=== PATIENT | female | born 1995 | race Two or more races ===

== ENCOUNTER 2017-05-02 21:43 | Emergency (ER) | payer OTHER ==
[~2017-05-02 21:43] MED LIST: AMITRIPTYLINE H25 MG PO; COGENTIN1 M1 PO; DEPAKOTE PO; FOLIC ACID PO; HALDOL PO; KEPPRA1000 MG PO; KEPPRA500 M2 PO; KLONOPIN0.5 MG PO; LEVAQUIN PO; MELATONIN; PROZAC10 M1 PO; SLEEPING PILL PO; TOPROL XL PO; VIMPAT150 MG PO; VIMPAT50 MG PO; ZOLOFT50 MG PO
[2017-05-03] MEDS ORDERED: PATIENT'S PHARMACY (09:35)
[2017-05-03] MEDS ORDERED: VIMPAT100 MG PO (09:36)
[2017-05-03] MEDS ORDERED: CARBAMAZEPINE100 M1 PO (19:51)
[2017-05-07] MEDS ORDERED: DEPAKOTE ER PO (13:19)
== END 2017-05-02 21:50 | disposition left against medical advice (07) ==
LOC: CED 21:43
DX: Z53.21 Procedure and treatment not carried out due to patient leaving prior to being seen by health care provider (principal)

== ENCOUNTER 2017-05-03 03:59 | Inpatient (IN) | payer OTHER ==
[~2017-05-03] VITALS: Ht 165.1 cm; Wt 46.0 kg
--- NOTE | ~2017-05-03 | CO ---
Unit #: [id number] #: [id number] Patient: ANY SAHNI [id number] [address] [place], [place] [address] [id number] I MR#: [id number] NAME: ANY SAHNI ROOM: 577 Age: 22 Sex: F Admission Date: 05/03/2017 : 1995 Attending Physician: Marcell Presley M.D. Consultation Date: 05/03/2017 CONSULTATION REPORT PRIMARY CARE PHYSICIAN I believe she goes to [facility]. PATIENT IDENTIFICATION This is a 22-year-old right-handed female, who is evaluated in room ER bed 6. SOURCE OF INFORMATION Some from the patient, her mother along her boyfriend, and previous records. I have seen this patient twice before. PROBLEM LIST 1. History of seizure. 2. 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 3. History of psychosis. 4. History of depression. 5. History of . HISTORY OF PRESENT ILLNESS This is a 22-year-old right-handed female, who actually has been evaluated here in the past. She used to go to [facility]. She has history of seizure since age 12. She used to see Dr. Jorge Zambrano. She has had positive EEG. She was on different medication. The last time she was here, we will put her on Keppra and Vimpat. It looks that she continues to be on Vimpat 200 mg b.i.d. and Keppra was discontinued and the is telling me that she is taking carbamazepine 200 mg two in the morning and three at night. She is seeing a Dr. Knutson, but I do not have any further records. She came with multiple seizures at nighttime and I believe she came yesterday, but left and came back again. One of the biggest concern right now is that she has abnormal LFTs and that is being looked into. Her vital signs are stable. She is a bit drowsy. She did tell me that she is taking her medication. She did tell me she is following with a doctor. She denies any alcohol or drug use or nausea and vomiting or missing any doses. Her seizure frequency otherwise, she says she is in good control, but I do not have any of the records. Previously, she has tried Depakote and other medication. She has seen DrTony Unit #: [id number] #: [id number] Patient: ANY SAHNI and they want to do ERCP because her liver function tests show significant elevation in LFTs and she may have a gallstone. PAST MEDICAL HISTORY As discussed above. PAST SURGICAL HISTORY . ALLERGIES None. HOME MEDICATIONS It looks like Vimpat 200 mg b.i.d. and carbamazepine 400 mg in the morning and 600 mg at night. FAMILY HISTORY Noncontributory. SOCIAL HISTORY She lives with boyfriend. She at least has a daughter. She denies tobacco, alcohol, or drug use. REVIEW OF SYSTEMS CONSTITUTIONAL: Very difficult to obtain because of her lethargy, but she denies any headaches, fever, nausea, vomiting, abdominal pain, diarrhea, or constipation. EXTREMITIES: No extremity problems. BACK: No back problems. PSYCHIATRIC: History of depression. NEUROLOGIC: Seizure disorder. No other hematologic, dermatologic, or endocrine issues known to me. PHYSICAL EXAMINATION VITAL SIGNS: Temperature 97.8, pulse 81, respirations 18, blood pressure 118/81, O2 saturations were 99%, weight of 53.7 kg. NEUROLOGIC: The patient is lethargic. She know she is in the hospital. She recognized herself and her family members. She cannot tell me the details about her orientation. Cranial examination demonstrates full pearce of vision to confrontation. Eye movements are conjugate. I did not see any ptosis. I did not see any nystagmus. Extraocular movements are intact. Sensation on the face and scalpel normal. Strength of muscles of facial expression normal. Hearing seemed to be intact bilaterally. Tongue was midline. I could not visualize oropharynx or uvula. Head turning was spontaneous. Motor examination demonstrated normal bulk, tone. Strength was 5-/5 all over. Sensory examination intact for soft touch and pain sensation. No extinction was seen. Romberg was not evaluated. Gait examination was deferred. I could not negative any reflexes. Toes are equivocal. Unit #: [id number] #: [id number] Patient: ANY SAHNI Coordination was otherwise okay for [id number]-vz-bjon-to-finger. DIAGNOSTIC STUDIES LABORATORY RESULTS: Reviewed. Her urinalysis shows possible urinary tract infection. LFTs were elevated as discussed. IMPRESSION This is a very interesting 22-year-old female with a breakthrough seizure. Her LFTs are elevated, so she is going for that evaluation. I am going to resume her Vimpat and Tegretol until we know the results. Seizure precautions apply and if there are further events, I may have to put her on other IV medications like Keppra again until she stabilizes and we will go from there. I will keep you informed. Discussed with Dr. Zafar, who was at bedside and discussed with the ER physician, discussed with the patient's boyfriend and further treatment will be based on how she does and then follow up with established neurologist and epileptologist. Dictated by... Jose Luis Kelly/bull TD: 05/04/2017 12:37 JOB #: [id number] CONSULTATION REPORT Page 1 of 1 X Edmar Noyola MD X CONSULTATION REPORT
--- NOTE | ~2017-05-03 | HP ---
Unit #: [id number] #: [id number] Patient: ANY SAHNI [id number] [address] [address] [id number] E MR#: [id number] NAME: ANY SAHNI ROOM: Age: 22 Sex: F Admission Date: 05/03/2017 : 1995 Attending Physician: Carlos Fields D.O. Primary Care Physician: No Primary Care Physician HISTORY AND PHYSICAL CHIEF COMPLAINT Seizures. HISTORY OF PRESENT ILLNESS The patient is a 22-year-old female with history of seizures, brought to the emergency room complaining of the recurrent seizures. The patient is postictal and is unable to provide history, and the history is obtained by speaking to the patient's mother and patient's boyfriend at the bedside. The patient has been on the medications with Vimpat, Keppra, and carbamazepine and was having recurrent seizures, especially at night. The patient had multiple seizures in the emergency room. The patient was found to have pneumonia on the CT of the abdomen and pelvis with elevated LFTs. Lactate is 2.4, and patient is being admitted for the above reasons. The patient denies abdominal pain. Denies any nausea or vomiting. The patient follows with neurology at [facility] and has been compliant with her medications. PAST MEDICAL HISTORY History of seizures as well as pseudoseizures. PAST SURGICAL HISTORY . ALLERGIES None. HOME MEDICATIONS 1. Vimpat. 2. Keppra. FAMILY HISTORY Negative for seizures. SOCIAL HISTORY The patient lives with her mother and her daughter. Does not smoke or use alcohol. REVIEW OF SYSTEMS Unable to obtain as the patient is more lethargic. PHYSICAL EXAMINATION GENERAL: Patient is lying on the bed, not in acute distress. VITALS: Temperature 97.8, pulse 81, respirations 18, blood pressure 118/81. Unit #: [id number] #: [id number] Patient: ANY SAHNI HEENT: Head: Atraumatic, normocephalic. Pupils equal, round, and reactive to light and accommodation. Extraocular movements are intact. Dry mucous membranes. NECK: Supple. LUNGS: Decreased air entry at the bases. Positive for rhonchi. HEART: Regular rate and rhythm. ABDOMEN: Soft. Positive bowel sounds. EXTREMITIES: No cyanosis. No clubbing. NEUROLOGIC: No gross focal motor deficit. PSYCHIATRIC: Mood and affect are appropriate. DIAGNOSTIC STUDIES LABORATORY: UA shows trace leukocyte esterase, 1+ protein, 5-10 urine WBCs. WBC 6.3, hemoglobin 12.1, hematocrit 36.4, platelets 218,000. Urine drug screen is negative. Lactic acid is 2.3. Lipase 29. Sodium 141, potassium 3.6, chloride 106, bicarbonate 25, glucose 118, BUN 18, creatinine 0.5. AST 1082, ALT 444, alkaline phosphatase 187, total bilirubin 1.1, direct bilirubin 0.4. Acetaminophen less than 10. Salicylate 9. Repeat lactic acid is 0.7. IMAGING: Chest x-ray shows no acute abnormality. There is a poor inspiratory effort with crowding of the central bronchovascular structures. CT of the abdomen and pelvis shows mild ground glass infiltrate in the visualized left lower lobe most suggestive of pneumonia. Cholelithiasis with scant pericholecystic fluid. No gallbladder wall thickening or surrounding inflammatory stranding. CT of the head shows no acute intracranial abnormality, mild mucosal thickening in the partially imaged left maxillary sinus. ASSESSMENT 1. Recurrent seizures. 2. Sepsis. 3. Pneumonia. 4. Elevated LFTs. PLAN Plan to admit the patient to the inpatient with telemetry. Continue with the sepsis protocol. Continue with IV antibiotics, Zosyn, pharmacy to dose. Follow with neurology for the recurrent seizures and GI for the elevated LFTs to rule out common bile duct blockage with the elevated LFTs. Further recommendations to follow as more lab results are available. Dictated by Jose Luis De Los Santos/ruthie TD: 05/03/2017 14:10 JOB #: [id number] Unit #: [id number] #: [id number] Patient: ANY SAHNI HISTORY AND PHYSICAL Page 1 of 1 X FANTASMA DAIGLE MD X HISTORY AND PHYSICAL
--- NOTE | ~2017-05-03 | CR84 ---
[facility] A Service of [facility] RADIOLOGY TEXT RESULTS PATIENT: ANY SAHNI LOCATION: [facility] : [birth year] UNIT #: [id number] AGE: [address]: Marcell Presley MD SEX: F ORDER DR: [id number] [facility] [address] [place], [place] [address] [id number] I MR#: [id number] Acc #: [id number] NAME: ANY SAHNI : 1995 SEX: F STUDY DATE/TIME: 05/03/2017 12:48 UNIT: [facility] ROOM: [facility] STUDY DESCRIPTION: CR ERCP Biliary and Pancr SI Attending Physician: Guerline Zafar M.D. Ordering Physician: Micky Chen M.D. Primary Care Physician: Primary Care Physician No MEDICAL IMAGING REPORT This report is preliminary unless electronic signature is present EXAM ERCP 05/03/2017 HISTORY Biliary colic and abnormally elevated liver enzymes on 05/03/2017, common bile duct obstruction and gallstones. Nausea and epigastric abdominal pain since 05/02/2017. CT scan of the abdomen and pelvis performed 05/03/2017 demonstrated cholelithiasis and pericholecystic fluid. FINDINGS ERCP was performed by Dr. Chen. 8 spot film radiographs of the upper abdomen were obtained and 2.26 minutes of fluoroscopy time was utilized. Contrast injection of the pancreatic duct was normal. Injection of the biliary tree was also normal. Sphincterotomy was performed by Dr. Chen. Balloon catheter was pulled retrograde through the common duct but no stones were obtained. A stent was placed in the common bile duct at the end of the examination. Dictated by... Bhavik Crabtree M.D. THIS IS AN ELECTRONICALLY VERIFIED REPORT Bhavik Crabtree M.D. at 05/08/2017 12:01 PM JANELL/isidro TD: 05/04/2017 01:58 JOB #: [id number] MEDICAL IMAGING REPORT Page 1 of 1 COPY
--- NOTE | ~2017-05-03 | CT71 ---
[facility] A Service of [facility] RADIOLOGY TEXT RESULTS PATIENT: ANY SAHNI LOCATION: [facility] : [birth year] UNIT #: [id number] AGE: [address]: Carlos Fields DO SEX: F ORDER DR: [id number] [place] [id number] [facility]. [place], [place] [address] [id number] E MR#: [id number] Acc #: [id number] NAME: ANY SAHNI : 1995 SEX: F STUDY DATE/TIME: 05/03/2017 7:56 UNIT: [facility] ROOM: STUDY DESCRIPTION: CT Head Wo Contrast Attending Physician: Carlos Fields D.O. Ordering Physician: Tea Membreno M.D. Primary Care Physician: No Primary Care Physician MEDICAL IMAGING REPORT This report is preliminary unless electronic signature is present EXAM CT head without contrast, 05/03/2017. HISTORY 22-year-old female with [address] head, 01/01/2014. TECHNIQUE Routine unenhanced axial images performed through the brain. This CT exam was performed with one or more of the following radiation dose reduction techniques: automatic exposure control, adjustment of mA and/or kV according to patient size, and iterative reconstruction. FINDINGS No hemorrhage, acute infarction, mass lesion, or abnormal extraaxial fluid collection. No midline shift or focal mass effect. Ventricular system is normal in size and configuration. No acute bony abnormality. Mild mucosal thickening of visualized left maxillary sinus. Visualized mastoid air cells are clear. IMPRESSION 1. No acute intracranial abnormality. 2. Mild mucosal thickening in the partially imaged left maxillary sinus. Dictated by... Gama Lentz M.D. THIS IS AN ELECTRONICALLY VERIFIED REPORT Gama Lentz M.D. at 05/03/2017 4:37 PM JANETH/tomas [facility] A Service of [facility] RADIOLOGY TEXT RESULTS PATIENT: ANY SAHNI LOCATION: [facility] : 93 UNIT #: [id number] AGE: [address]: Carlos Fields DO SEX: F ORDER DR: TD: 05/03/2017 12:02 JOB #: [id number] MEDICAL IMAGING REPORT Page 1 of 1 COPY
--- NOTE | ~2017-05-03 | CT2 ---
[facility] A Service of [facility] RADIOLOGY TEXT RESULTS PATIENT: ANY SAHNI LOCATION: [facility] 577-01 : [birth year] UNIT #: [id number] AGE: [address]: Marcell Presley MD SEX: F ORDER DR: [id number] [place] [id number] [facility]. [place], [place] [address] [id number] E MR#: [id number] Acc #: [id number] NAME: ANY SAHNI : 1995 SEX: F STUDY DATE/TIME: 05/03/2017 7:59 UNIT: [facility] ROOM: STUDY DESCRIPTION: CT Abd and Pelv W Cont Attending Physician: Carlos Fields D.O. Ordering Physician: Tea Membreno M.D. Primary Care Physician: Primary Care Physician No MEDICAL IMAGING REPORT This report is preliminary unless electronic signature is present EXAM CT abdomen and pelvis with contrast INDICATIONS Nausea and epigastric pain for [address] of the abdomen and pelvis was performed following the administration of oral and IV contrast only. Coronal and sagittal reformatted images were obtained. This CT exam was performed with one or more of the following radiation dose reduction techniques: Automatic exposure control, adjustment of mA and/or kV according to patient size, and iterative reconstruction. No comparisons. FINDINGS There is patchy ground-glass infiltrate within the visualized portion of the left lower lobe suspicious for pneumonia. Cholelithiasis. There may be some scant pericholecystic fluid. No wall thickening or inflammatory stranding around the gallbladder. The spleen is unremarkable. The kidneys are unremarkable. The adrenal glands are unremarkable. The pancreas is unremarkable. PELVIS: Colon is unremarkable. The appendix is normal. IUD. The bone windows are unremarkable. IMPRESSION 1. Mild ground-glass infiltrate in the visualized left lower lobe most suggestive of pneumonia. 2. Cholelithiasis with scant pericholecystic fluid. No gallbladder wall thickening or surrounding inflammatory stranding. [facility] A Service of [facility] RADIOLOGY TEXT RESULTS PATIENT: ANY SAHNI LOCATION: [facility] 577-01 : [birth year] UNIT #: [id number] AGE: [address]: Marcell Presley MD SEX: F ORDER DR: Dictated by... uJan Pablo Esquivel M.D. THIS IS AN ELECTRONICALLY VERIFIED REPORT Juan Pablo Esquivel M.D. at 05/08/2017 11:20 AM JARED/dylan TD: 05/03/2017 11:50 JOB #: [id number] MEDICAL IMAGING REPORT Page 1 of 1 COPY
--- NOTE | ~2017-05-03 | CR72 ---
[facility] A Service of [facility] RADIOLOGY TEXT RESULTS PATIENT: ANY SAHNI LOCATION: [facility] : [birth year] UNIT #: [id number] AGE: [address]: Marcell Presley MD SEX: F ORDER DR: [id number] [facility] [address] [facility]. [place], [place] [address] [id number] E MR#: [id number] Acc #: [id number] NAME: ANY SAHNI : 1995 SEX: F STUDY DATE/TIME: 05/03/2017 6:51 UNIT: [facility] ROOM: STUDY DESCRIPTION: CR Chest Single View Portable Attending Physician: Carlos Fields D.O. Ordering Physician: Carlos Fields D.O. Primary Care Physician: No Primary Care Physician MEDICAL IMAGING REPORT This report is preliminary unless electronic signature is present EXAM AP view of the chest. COMPARISON None/ INDICATIONS 22-year-old female with recent seizure. Cough, dyspnea and chest pain today. FINDINGS Cardiomediastinal silhouette is within normal limits. There is poor inspiratory effort with crowding of central bronchovascular structures. No evidence of pneumothorax, pleural effusion or pneumonia. IMPRESSION No acute abnormality. There is poor inspiratory effort with crowding of central bronchovascular structures. Dictated by... Harsh Howard M.D. THIS IS AN ELECTRONICALLY VERIFIED REPORT Harsh Howard M.D. at 05/04/2017 8:56 PM BLM/gz TD: 05/03/2017 09:02 JOB #: [id number] MEDICAL IMAGING REPORT Page 1 of 1 COPY
--- NOTE | ~2017-05-03 | CO ---
Unit #: [id number] #: [id number] Patient: ANY SAHNI [id number] [address] [address] [id number] I MR#: [id number] NAME: ANY SAHNI ROOM: 577 Age: 22 Sex: F Admission Date: 05/03/2017 : 1995 Attending Physician: Marcell Presley M.D. Consultation Date: 05/03/2017 CONSULTATION REPORT HISTORY OF PRESENT ILLNESS Ms. Jorge Luis Amaya is a 22-year-old female, who is and presented to the hospital with right upper quadrant pain, associated nausea, vomiting, and the pain radiating into the right subscapular area. CT scan revealed cholelithiasis. Liver chemistries were elevated, so she was seen by Dr. Chen and today underwent ERCP and stent placement. Post ERCP, the patient had a reported seizure and is admitted to the ICU for observation. Currently, she is awake, alert, and oriented and does not appear to be postictal. We discussed laparoscopic cholecystectomy. PAST MEDICAL HISTORY 2, para 2, x2. Seizure disorder. ALLERGIES Denies allergies to medication. MEDICATIONS Include Vimpat. FAMILY HISTORY She is unaware of any chronic or inheritable diseases. SOCIAL HISTORY She has 2 children. Denies use of tobacco, alcohol or recreational drugs. She does not work outside of the home. REVIEW OF SYSTEMS Otherwise unremarkable. PHYSICAL EXAMINATION VITAL SIGNS: Temperature is 97.8, pulse 81, respirations 18, blood pressure 118/81, O2 sats 99% on room air. HEENT: No scleral icterus. CARDIAC: Regular rhythm. LUNGS: Clear. ABDOMEN: Soft. She guards in the right upper quadrant, but there is no palpable mass. No involuntary guarding. No rebound. EXTREMITIES: No edema. NEUROLOGIC: Grossly intact. Neurologically, she is not postictal. SKIN: No skin rashes or lesions. DIAGNOSTIC STUDIES LABORATORY RESULTS: Repeat post ERCP labs are pending. Unit #: [id number] #: [id number] Patient: ANY SAHNI ASSESSMENT AND PLAN A 22-year-old female with cholelithiasis, who is status post endoscopic retrograde cholangiopancreatography and stent placement. We discussed laparoscopic cholecystectomy including risks, benefits, complications, and the possibility of conversion to an open procedure. At this time, we will reassess the patient in the morning and discuss with Neurology if it is safe to proceed with general anesthesia. Dictated by... Jose Luis Mark/bull TD: 05/03/2017 23:29 JOB #: [id number] CONSULTATION REPORT Page 1 of 1 X Braeden Lorenzana MD X CONSULTATION REPORT
--- NOTE | ~2017-05-03 | A ---
[facility] Nutrition Therapy DATE: 05/04/17 Patient: ANY CALABRESE MAZIN Physician: JORDAN Address: [address] [place] [address] REZA Room/Bed: [address], Zip: [place] [address] Admit Date: 05/03/17 Date of : [birth year] Height: 5 5 Weight: 105 48 NUTRITIONAL ASSESSMENT: REASON: PT SEEN FOR LOW BMI + 1 NUTRITION RISK PT RE: /, ALSO NPO IN ICU ASSESSMENT PT IS 22 Y.O. FEMALE ADMITTED FOR SEIZURE, SEPSIS, PNA PMH: PSEUDOSEIZURES, SEIZURE DISORDER, HTN Anthropometrics: 5'5", WT: 103# (PER PT) (47 KG), BMI: 17.1 Labs: BUN: 8, CREAT: 0.4, AST: 282, ALT: 328, AMYLASE: 539, LIPASE: 907 Meds: KCL, NACL, ZOSYN I/O & Bowel function: 1710/1357 Skin Integrity: NO KNOWN SKIN ISSUES Estimated Nutrition Needs: INCREASED NEEDS 2' CURRENT CONDITION, WEIGHT LOSS NOTED, PT Assessment: CHART REVIEWED AND EVENTS NOTED. PT SEEN FOR LOW BMI + 1 NUTRITION RISK PT RE: / + NPO IN ICU ASSESSMENT. PT AWAKE BUT SLIGHTY CONFUSED AT TIME OF VISIT REPORTING "NORMAL" GOOD PO INTAKE AND APPETITE PRIOR TO ADMIT, NOTES BABY 2 MONTHS OLD. PT REPORTS LOSING ~10# PAST MONTH 2' . (PT ADDS UBW IS ~115#). PER RN AND CHART, PLANS IN PLACE FOR LAP CHOLECYSTECTOMY. THIS RD ENCOURAGED SMALL FREQUENT MEALS (ADEQUATE KCAL, FLUID AND PROTEIN INTAKE) ONCE DIET ADVANCES FOR INCREASED NEEDS 2' , PT REPORTED. PT REPORTED NO DIET QUESTIONS AT THIS TIME. RD TO FOLLOW. SEE RECOMMENDATIONS BELOW. Dx: INCREASED NUTRIENT NEEDS R/T CURRENT CLINICAL CONDITION, AEB PT REPORT ABOVE, 10# WEIGHT LOSS IN PAST MONTH 2' NEEDS. 2. INADEQUATE ORAL INTAKE R/T CURRENT DIAGNOSIS, CURRENT CLINICAL CONDITION AEB NPO STATUS. Intervention: 1. NPO Monitoring, Evaluation and Goals: 1. ORAL INTAKE; ADVANCE DIET AND CONSUME/TOLERATE >50% OF MEALS 2. WEIGHTS; PROMOTE GRADUAL WEIGHT GAIN TOWARDS HEALTHY BMI; PREVENT WEIGHT LOSS [facility] Nutrition Therapy DATE: 05/04/17 Patient: ANY RETANA Physician: JORDAN Address: [address] Room/Bed: [address], Zip: [place] [address] Admit Date: 05/03/17 Date of : [birth year] Height: 5 5 Weight: 105 48 3. LABS; WNL: AMYLASE & LIPASE MONITOR: PER PROTOCOL, CRITERIA TO DETERMINE IF GOALS ABOVE ARE MET Recommendations: 1. ONCE MEDICALLY FEASIBLE, ADVANCE DIET TOLERATED TO HEALTHY HEART 2. PLEASE ORDER ENSURE SHAKES BID, IF PO INTAKE <50%, FOR ADDITIONAL PROTEIN, KCAL AND FLUID 3. ENCOURAGE SLOW GRADUAL PO INTAKE. RD WILL F/U PER PROTOCOL PT IS MILD/MODERATELY COMPROMISED Respectfully, BRAYDEN HAMILTON MS, RD, LD [facility] Nutrition[facility] cc: client file
--- NOTE | ~2017-05-03 | OR ---
Unit #: [id number] #: [id number] Patient: ANY SAHNI [id number] [address] [address] [id number] MR#: [id number] NAME: ANY SAHNI ROOM: 577 Date of Procedure: 05/04/2017 Admission Date: 05/03/2017 Surgeon: Braeden Lorenzana M.D. : 1995 Attending Physician: Marcell Presley M.D. OPERATIVE REPORT PREOPERATIVE DIAGNOSES Chronic cholecystitis, cholelithiasis. POSTOPERATIVE DIAGNOSES Chronic cholecystitis, cholelithiasis PROCEDURE PERFORMED Laparoscopic cholecystectomy. ANESTHESIA General endotracheal anesthesia. ESTIMATED BLOOD LOSS Less than 10 mL. INDICATIONS FOR PROCEDURE Ms. Amaya is a 22-year-old female, who presented with nausea, vomiting, and elevated liver chemistries. She was admitted to the medical service and underwent ERCP with stent placement. We were consulted for cholecystectomy due to cholelithiasis. DESCRIPTION OF PROCEDURE The patient was transported from her hospital room to the operating room, and after induction of general endotracheal anesthesia, she was prepped and draped in usual sterile fashion. A 5-mm infraumbilical incision was made. Veress needle was placed. Pneumoperitoneum was created. Then, a 5-mm trocar was placed. Laparoscope was introduced into the peritoneal cavity. Under direct vision, the epigastric and lateral ports were placed. Gallbladder was grasped and elevated. Adhesions were stripped away and the infundibulum was identified and retracted laterally. Thor of [place] was dissected out until we could clearly identify the cystic duct, gallbladder, and cystic duct-common duct junction. The posteriorly placed cystic artery was also dissected free. I then swept the cystic duct towards the gallbladder and there did not appear to be any stones in the cystic duct. A single clip was placed in the cystic duct centered to gallbladder and then three clips were placed distally and the cystic duct was sharply divided. Posteriorly, the cystic artery was doubly clipped proximally and distally and divided. I then dissected the gallbladder out of the liver bed using cautery dissection. Once it was freed up from its hepatic attachments, it was brought out through the epigastric port. There was no spillage of bile or stones. There was excellent hemostasis. The epigastric fascial defect was closed using a Unit #: [id number] #: [id number] Patient: ANY SAHNI neoClose device and the closure was airtight. I then reduced the pneumoperitoneum, as I removed the laparoscope and trocars. 0.5% Marcaine with epinephrine was infiltrated into each trocar site. Skin was closed with 4-0 Monocryl subcuticular closure and Dermabond skin adhesive. Sponges and needle counts were correct x3. The patient was transported to recovery in stable condition. Findings and postoperative instructions and expectations were discussed with the family with the use of an gas station attendant. Dictated by... Jose Luis Mark/bull TD: 05/04/2017 14:52 JOB #: [id number] OPERATIVE REPORT Page 1 of 1 X Braeden Lorenzana MD X PROCEDURE OPERATIVE NOTE
[2017-05-03 04:57] LABS: URINE SOURCE CLEAN CATCH
[2017-05-03 05:10] LABS: URINE APPEARANCE TURBID; URINE BILIRUBIN NEG (NEG); URINE BLOOD NEG (NEG); URINE COLOR DK YELLOW; URINE GLUCOSE NEG (NEG); URINE KETONE TRACE (NEG); URINE LEUKOCYTE ESTERASE TRACE (NEG); URINE NITRATE NEG (NEG); URINE PROTEIN 1+ (NEG); URINE SPECIFIC GRAVITY 1.029 (1.003-1.035)
[2017-05-03 05:12] LABS: CULTURE INDICATED? YES; URBCS1 AUWI 0-2 /[HPF] (0-2); URINE BACTERIA AUWI NEG (NEGATIVE); URINE SQUAMOUS EPITHELIAL CELL FEW /[HPF]
[2017-05-03 05:25] LABS: BASOPHIL% 0.3 % (0-2.5); HEMATOCRIT 36.4 % (35.0-45.0); HEMOGLOBIN 12.1 gm/dL (12.0-16.0); LYMPHOCYTE# 0.6 X10e3 (1.0-3.5); LYMPHOCYTE% 10.4 % (17.0-45.0); MEAN CELL VOLUME 87.6 FL (83-96); MEAN CORPUSCULAR HGB CONC 33.1 g/dL (30-36); MEAN PLATELET VOLUME 9.8 FL (6.5-11.5); MONOCYTE# 0.2 X10e3 (0-1.0); NEUTROPHIL# 5.3 X10e3 (1.5-7.1); NEUTROPHIL% 85.3 % (40-75); PLATELET COUNT 218 X10e3 (140-420); RED BLOOD COUNT 4.16 X10e (3.90-5.30); RED CELL DISTRIBUTION WIDTH 14.4 % (11.0-15.5); WHITE BLOOD COUNT 6.2 X10e3 (4.0-10.5)
[2017-05-03 05:30] LABS: URINE MUCUS O
[2017-05-03 05:36] LABS: DIFF IND NO
[2017-05-03 05:46] LABS: AMPHETAMINE NEG (NEG); BARBITURATES NEG (NEG); BENZODIAZEPINES NEG (NEG); COCAINE NEG (NEG); MARIJUANA NEG (NEG); OPIATES NEG (NEG); TRICYCLIC ANTIDEPRESSANTS NEG (NEG); U METHADONE NEG (NEG)
[2017-05-03 07:16] LABS: ALCOHOL BLOOD <5 mg/dL (0); ALKALINE PHOSPHATASE 187 U/L (32-92); ALT (SGPT) 444 U/L (10-40); AST (SGOT) 1082 U/L (10-42); BILIRUBIN, DIRECT 0.4 mg/dL (0.0-0.2); BILIRUBIN,INDIRECT 0.7 mg/dL (0.0-0.9); BILIRUBIN,TOTAL 1.1 mg/dL (0.2-2.0); BLOOD UREA NITROGEN 18 mg/dL (9-23); CARBON DIOXIDE 25 mmol/L (22-31); CHLORIDE 106 mmol/L (100-111); CREATININE SERUM 0.5 mg/dL (0.6-1.4); GLOM FILT RATE Estimated 135.5 mL/min (>60); GLUCOSE FASTING 118 mg/dL (70-110); POTASSIUM 3.6 mmol/L (3.5-5.1); PROTEIN TOTAL SERUM 7.3 g/dL (6.0-8.3); SODIUM 141 mmol/L (135-145)
[2017-05-03 07:51] LABS: ACETAMINOPHEN <10 ug/mL
[2017-05-03] MEDS ORDERED: PATIENT'S PHARMACY (09:35)
[2017-05-03] MEDS ORDERED: VIMPAT100 MG PO (09:36)
[2017-05-03] MEDS ORDERED: CARBAMAZEPINE100 M1 PO (19:51)
[2017-05-04 05:39] LABS: BASOPHIL% 0.5 % (0-2.5); HEMATOCRIT 33.1 % (35.0-45.0); HEMOGLOBIN 11.2 gm/dL (12.0-16.0); LYMPHOCYTE# 2.2 X10e3 (1.0-3.5); LYMPHOCYTE% 34.1 % (17.0-45.0); MEAN CELL VOLUME 88.8 FL (83-96); MEAN CORPUSCULAR HEMOGLOBIN 29.9 PG (28-34); MEAN CORPUSCULAR HGB CONC 33.7 g/dL (30-36); MEAN PLATELET VOLUME 9.7 FL (6.5-11.5); MONOCYTE# 0.3 X10e3 (0-1.0); MONOCYTE% 5.3 % (3.0-12.0); NEUTROPHIL# 3.9 X10e3 (1.5-7.1); NEUTROPHIL% 60.1 % (40-75); PLATELET COUNT 176 X10e3 (140-420); RED BLOOD COUNT 3.73 X10e (3.90-5.30); RED CELL DISTRIBUTION WIDTH 14.4 % (11.0-15.5); WHITE BLOOD COUNT 6.5 X10e3 (4.0-10.5)
[2017-05-04 05:45] LABS: DIFF IND NO
[2017-05-04 06:43] LABS: ALBUMIN SERUM 3.5 g/dL (3.5-5.0); BILIRUBIN,TOTAL 0.8 mg/dL (0.2-2.0); CALCIUM SERUM 8.7 mg/dL (8.4-10.2); CREATININE SERUM 0.4 mg/dL (0.6-1.4); GLOM FILT RATE Estimated 145.8 mL/min (>60); POTASSIUM 3.5 mmol/L (3.5-5.1); PROTEIN TOTAL SERUM 6.3 g/dL (6.0-8.3)
[2017-05-05 07:02] LABS: HEMATOCRIT 36.2 % (35.0-45.0); HEMOGLOBIN 12.1 gm/dL (12.0-16.0); MEAN CELL VOLUME 88.2 FL (83-96); MEAN CORPUSCULAR HEMOGLOBIN 29.4 PG (28-34); MEAN CORPUSCULAR HGB CONC 33.3 g/dL (30-36); MEAN PLATELET VOLUME 9.4 FL (6.5-11.5); RED BLOOD COUNT 4.1 X10e (3.90-5.30); RED CELL DISTRIBUTION WIDTH 14.4 % (11.0-15.5); WHITE BLOOD COUNT 7.2 X10e3 (4.0-10.5)
[2017-05-05 07:32] LABS: ALBUMIN SERUM 3.8 g/dL (3.5-5.0); BILIRUBIN,TOTAL 0.5 mg/dL (0.2-2.0); BUN/CREATININE RATIO 12.85; CALCIUM SERUM 8.9 mg/dL (8.4-10.2); CREATININE SERUM 0.7 mg/dL (0.6-1.4); GLOM FILT RATE Estimated 121.3 mL/min (>60); POTASSIUM 3.7 mmol/L (3.5-5.1); PROTEIN TOTAL SERUM 7.1 g/dL (6.0-8.3)
[2017-05-05] MEDS ORDERED: DEPAKOTE ER250 MG PO (12:54)
[2017-05-05] MEDS ORDERED: HYDROCODON-ACE1 EA14 PO (12:54)
[2017-05-05] MEDS ORDERED: AUGMENTIN PO (12:55)
[2017-05-05] MEDS ORDERED: LORTAB 7.5-3251 EACH PO (12:57)
[2017-05-05] MEDS ORDERED: TEGRETOL PO (14:39)
[2017-05-07] MEDS ORDERED: DEPAKOTE ER PO (13:19)
== END 2017-05-05 15:07 | disposition home or self-care (01) | DRG 853 ==
LOC: CED 03:59 → CICCU2 09:00 → CED 19:21 → CICCU2 05-04 05:53 → C5C 05-04 15:00
PROVIDERS: Emergency Medicine; Internal Medicine; Specialist
PROC: 0DJ08ZZ Inspection of Upper Intestinal Tract, Via Natural or Artificial Opening Endoscopic (ICD-10-PCS; 2017-05-03 13:35)
PROC: 0F798DZ Dilation of Common Bile Duct with Intraluminal Device, Via Natural or Artificial Opening Endoscopic (ICD-10-PCS; 2017-05-03 13:35)
PROC: 0FT44ZZ Resection of Gallbladder, Percutaneous Endoscopic Approach (ICD-10-PCS; principal; 2017-05-04 11:00)
DX: A41.9 Sepsis, unspecified organism (principal); J69.0 Pneumonitis due to inhalation of food and vomit; K80.10 Calculus of gallbladder with chronic cholecystitis without obstruction; G40.909 Epilepsy, unspecified, not intractable, without status epilepticus; R94.5 Abnormal results of liver function studies; F32.9 Major depressive disorder, single episode, unspecified
CPT/HCPCS: 36415; 70450; 71010; 74177; 74330; 80048; 80053; 80076; 80307; 81003; 82150; 83605; 83690; 84703; 85025; 85027; 87040; 87086; 88304; 96361; 96374; 96375; 99285; C9254; G0480; J0131; J0330; J1100; J1610; J1885; J1953; J2250; J2270; J2405; J2543; J2710; J3010; J3370; Q9967